=== PATIENT | female | born 1955 | race Caucasian/White ===

== ENCOUNTER 2018-06-10 14:33 | Emergency (ER) | payer MEDICAID ==
[2018-06-10] MEDS: ACETAMINOPHEN 500 MG TAB PO (16:25)
== END 2018-06-10 16:15 | disposition home or self-care (01) ==
LOC: FTE 16:15
DX: H61.21 Impacted cerumen, right ear (principal)
CPT/HCPCS: 69209; 99283-25

== ENCOUNTER 2018-08-06 08:56 | Emergency (ER) | payer MEDICAID | END 2018-08-06 11:47 | disposition home or self-care (01) | LOC: FTE 08:56 | DX: J03.90 Acute tonsillitis, unspecified (principal); E11.9 Type 2 diabetes mellitus without complications | CPT/HCPCS: 99283; Z7502 ==

== ENCOUNTER 2018-12-19 12:41 | Emergency (ER) | payer MEDICAID ==
[2018-12-19] MEDS: ALBUTEROL 0.083% (NEB) 2.5 MG/3 ML AMP HHN (13:34)
[2018-12-19] MEDS: DEXAMETHASONE 4 MG TAB PO (14:10)
== END 2018-12-19 14:14 | disposition home or self-care (01) ==
LOC: FTE 12:41
DX: J06.9 Acute upper respiratory infection, unspecified (principal)
CPT/HCPCS: 94664; 99283-25